=== PATIENT | female | born 1950 | race Hispanic/Latino ===

== ENCOUNTER 2017-03-24 23:22 | Emergency (ER) | payer OTHER ==
[~2017-03-24] VITALS: Ht 157.5 cm; Wt 81.6 kg
[~2017-03-24 23:22] MED LIST: ATIVAN0.5 MG ORAL; BENADRYL25 MG ORAL; NITROFURANTOIN100 M2 ORAL; REGLAN10 MG ORAL; UNOBMED
[2017-03-24 23:37] VITALS: BP 119/65
[2017-03-24] MEDS ORDERED: IBUPROFEN600 MG ORAL (23:57)
--- NOTE | 2017-03-24 23:57 | Emergency Room Report ---
History of Present Illness General Chief Complaint: Dyspnea/Respdistress Source: Patient Present Illness HPI Is a 66-year-old female with a history of hypothyroidism. She presents with chief complaint of shortness of breath. Onset for the last day. She's been having mild cough. Also with sore throat and headache. No nausea no vomiting. No fever or chills. Has body aches. Coughing is nonproductive in nature. No chest pain. Also with congestion. Allergies: Coded Allergies: No Known Allergies (Unverified , 03/24/17) Patient History Past Medical History: see triage record, old chart reviewed Past Surgical History: other Pertinent Family History: none Social History: Denies: smoking Now: No Immunizations: other Reviewed Nursing Documentation: PMH: Agreed, PSxH: Agreed Nursing Documentation-PMH Hx Asthma: Yes Review of Systems Eye: Denies: eye pain, blurred vision ENT: Denies: ear pain, nose congestion, throat swelling Respiratory: Reports: cough, Denies: shortness of breath Cardiovascular: Denies: chest pain, palpitations Gastrointestinal: Denies: abdominal pain, diarrhea, nausea, vomiting Musculoskeletal: Denies: back pain, joint pain Skin: Denies: rash Neurological: Reports: headache, Denies: numbness Endocrine: Denies: increased thirst, increased urine Hematologic/Lymphatic: Denies: easy bruising All Other Systems: negative except mentioned in HPI Physical Exam Vital Signs Date Time Temp Pulse Resp B/P (MAP) Pulse Ox O2 Delivery O2 Flow Rate FiO2 03/24/17 23:17 98.1 68 18 132/79 99 Room Air vitals normal. Sp02 EP Interpretation: reviewed, normal General Appearance: well appearing, no apparent distress, alert Head: normocephalic, atraumatic Eyes: bilateral eye PERRL, bilateral eye EOMI ENT: hearing grossly normal, normal pharynx Neck: full range of motion, supple, no meningismus Respiratory: chest non-tender, lungs clear, normal breath sounds Cardiovascular #1: regular rate, rhythm, no murmur Gastrointestinal: normal bowel sounds, non tender, no mass, no organomegaly, no bruit, non-distended Musculoskeletal: back normal, gait/station normal, normal range of motion Psychiatric: mood/affect normal Skin: warm/dry Medical Decision Making Diagnostic Impression: Primary Impression: Viral upper respiratory infection ER Course Patient presents With a viral upper respiratory infection. Looks well. No evidence of ACS, PE, dissection to name a few. We'll discharge him. Last Vital Signs Date Time Temp Pulse Resp B/P (MAP) Pulse Ox O2 Delivery O2 Flow Rate FiO2 03/24/17 23:37 63 24 Room Air 03/24/17 23:37 98.3 119/65 95 Status: unchanged Disposition: HOME, SELF-CARE Condition: Stable Scripts Ibuprofen* (MOTRIN*) 600 Mg Tablet 600 MG ORAL Q8H Y for For Pain, #30 TAB 0 Refills Prov: JAMES LBEVINS M.D. 03/24/17 Additional Instructions: Followup with your Dr. in 7 days. Return if symptom worsen. JAMES BLEVINS M.D. Mar 24, 2017 23:57
[2017-03-25] VITALS: BP 124/82
== END 2017-03-25 | disposition home or self-care (01) ==
LOC: EDBD 23:22 → EMR 23:55 → MERGE 23:55 → EMR 03-25
DX: J06.9 Acute upper respiratory infection, unspecified (principal); R06.00 Dyspnea, unspecified; E03.9 Hypothyroidism, unspecified; R06.02 Shortness of breath; R05 Cough; J02.9 Acute pharyngitis, unspecified; R51 Headache
CPT/HCPCS: 99283